=== PATIENT | female | born 1995 | race Caucasian/White ===

== ENCOUNTER 2018-11-16 21:52 | Emergency (ER) | payer OTHER ==
--- NOTE | 2018-11-16 21:57 | PDOC ---
Rapid Medical Evaluation Time Seen by Provider: 11/16/18 21:54 Medical Evaluation: 11/16/18 21:54 I have performed a brief in-person evaluation of this patient. The patient presents with a chief complaint of: lower abdominal cramping and vomiting Pertinent physical exam findings: LMP -"end of september" No abd tenderness. No CVAT I have ordered the following: labs, urine, ivf The patient will proceed to the ED for further evaluation. Discharge Disposition - Diagnosis Abdominal cramping - Referrals - Patient Instructions - Post Discharge Activity
[2018-11-16 21:58] VITALS: TEMP 98.2; BMI 21.7
[2018-11-16] MEDS ORDERED: SODIUM CHLORIDE 1,000 ML IV STA (22:03)
[2018-11-16 22:43] LABS: BASO % 0.2 % (0-2.0); HEMATOCRIT 42.8 % (32.4-45.2); HEMOGLOBIN 15.1 GM/dL (10.7-15.3); LYMPH % 11.1 % (8-40); MCH 31.4 pg (25.7-33.7); MCHC 35.3 g/dl (32.0-36.0); MEAN CELL VOLUME 88.9 fl (80-96); MEAN PLT VOLUME 8.5 fl (7.5-11.1); MONO % 7.7 % (3.8-10.2); PLATELET COUNT 325 K/MM3 (134-434); RBC 4.82 M/mm3 (3.60-5.2); RDW 12.6 % (11.6-15.6)
[2018-11-16] MEDS ORDERED: ONDANSETRON 4 MG/2 ML VIAL IVPUSH ONE (22:53)
[2018-11-16 23:05] LABS: ALBUMIN 4.7 g/dl (3.4-5.0); ALK PHOS 59 U/L (45-117); ANION GAP 15 MMOL/L (8-16); BLOOD UREA NITROGEN 13 mg/dL (7-18); CALCIUM 9.2 mg/dL (8.5-10.1); CHLORIDE 94 mmol/L (98-107); CO2 26 mmol/L (21-32); CREATININE 0.9 mg/dL (0.55-1.3); GLUCOSE,RANDOM 132 mg/dL (74-106); LIPASE 116 U/L (73-393); POTASSIUM 3.7 mmol/L (3.5-5.1); SGOT/AST 23 U/L (15-37); SGPT/ALT 31 U/L (13-61); SODIUM 134 mmol/L (136-145); TOT PROT 8.4 g/dl (6.4-8.2)
--- NOTE | 2018-11-16 23:17 | PDOC ---
Attending Attestation - HPI HPI: 11/16/18 23:36 The patient is a 22 year old female () with no significant past medical history who presents to the emergency department with low ab pain and nausea for 1 week. The patient reports that she has been experiencing some associated vomiting with her nausea and abdominal pain. [facility] which she was given zofran and, had a medically induced . She denies any vaginal bleed, discharge , dysuria or frequency. The patient denies any other symptoms or complaints. Documentation prepared by Opal Marc, acting as infertility medical assistant for Greg Florez MD. <Opal Marc - Last Filed: 11/16/18 23:35> - Resident Resident Name: Dinesh Frausto - ED Attending Attestation I have performed the following: I have examined & evaluated the patient, The case was reviewed & discussed with the resident, I agree w/resident's findings & plan, Exceptions are as noted - Physicial Exam PE: 11/17/18 05:24 Agree with exam as documented by resident - Medical Decision Making 11/17/18 05:26 n/v, abd px, vag bleeding in context of recent misoprostol dose for medical ab f/u labs, tvus dispo per clinical course <Greg Florez - Last Filed: 11/17/18 05:26>
[2018-11-16] MEDS ORDERED: ONDANSETRON 4 MG/2 ML VIAL ONE (23:27)
--- NOTE | 2018-11-16 23:52 | PDOC ---
History of Present Illness - General Chief Complaint: Nausea/Vomiting Stated Complaint: VOMITING Time Seen by Provider: 11/16/18 21:54 History Source: Patient Exam Limitations: No Limitations - History of Present Illness Initial Comments: 11/16/18 23:47 Patient is a 22F , LMP 9 weeks ago, history of surgical abortions here today complaining of one week of vomiting. [facility] a medical . Endorses sick contact with vomiting in her son. Endorses vomit with small amount of blood in vomit. Denies fevers, chills. Endorses lower abdominal pain. Denies vaginal discharge and vaginal bleeding. Denies dysuria. Past History - Past Medical History Allergies/Adverse Reactions: Allergies Allergy/AdvReac Type Severity Reaction Status Date / Time No Known Allergies Allergy Verified 11/16/18 21:59 COPD: No CHF: No - Suicide/Smoking/Psychosocial Hx Smoking History: Never smoked Have you smoked in the past 12 months: No Information on smoking cessation initiated: No Hx Alcohol Use: No Drug/Substance Use Hx: No Review of Systems - Review of Systems Comments:: 11/16/18 23:49 GENERAL/CONSTITUTIONAL: No fever or chills. No weakness. HEAD, EYES, EARS, NOSE AND THROAT: No change in vision. No sore throat. CARDIOVASCULAR: No chest pain or shortness of breath RESPIRATORY: No cough, wheezing, or hemoptysis. GASTROINTESTINAL: +nausea, +vomiting, +diarrhea. GENITOURINARY: No dysuria, frequency, or change in urination. MUSCULOSKELETAL: No joint or muscle swelling or pain. No neck or back pain. SKIN: No rash NEUROLOGIC: No headache, vertigo, loss of consciousness, or change in strength/ sensation. ENDOCRINE: No increased thirst. No abnormal weight change HEMATOLOGIC/LYMPHATIC: No anemia, easy bleeding, or history of blood clots. ALLERGIC/IMMUNOLOGIC: No hives or skin allergy. *Physical Exam - Vital Signs Last Vital Signs Temp Pulse Resp BP Pulse Ox 98.2 F 102 H 16 118/84 100 11/16/18 21:55 11/16/18 21:55 11/16/18 21:55 11/16/18 21:55 11/16/18 21:55 - Physical Exam Comments: 11/16/18 23:50 GENERAL: Awake, alert, and fully oriented, tired appearing HEAD: No signs of trauma, normocephalic, atraumatic EYES: PERRLA, EOMI, sclera anicteric, conjunctiva clear ENT: Auricles normal inspection, hearing grossly normal, nares patent, oropharynx clear without exudates. Dry mucosa NECK: Normal ROM, supple, no lymphadenopathy, JVD, or masses LUNGS: No distress, speaks full sentences, clear to auscultation bilaterally HEART: Regular rate and rhythm, normal S1 and S2, no murmurs, rubs or gallops, peripheral pulses normal and equal bilaterally. ABDOMEN: Soft, +suprapubic tenderess, normoactive bowel sounds. No guarding, no rebound. No masses EXTREMITIES: Normal inspection, Normal range of motion, no edema. No clubbing or cyanosis. NEUROLOGICAL: Cranial nerves II through XII grossly intact. Normal speech, normal gait, no focal sensorimotor deficits SKIN: Warm, Dry, normal turgor, no rashes or lesions noted. : Blood in vaginal vault, no CMT, normal appearing external genitalia Moderate Sedation - Procedure Monitoring Vital Signs: Procedure Monitoring Vital Signs Temperature 98.2 F 11/16/18 21:55 Pulse Rate 102 H 11/16/18 21:55 Respiratory Rate 16 11/16/18 21:55 Blood Pressure 118/84 11/16/18 21:55 O2 Sat by Pulse Oximetry (%) 100 11/16/18 21:55 ED Treatment Course - LABORATORY CBC & Chemistry Diagram: 11/16/18 22:40 11/16/18 22:40 - ADDITIONAL ORDERS Additional order review: Laboratory Results 11/16/18 22:40 Sodium 134 L Potassium 3.7 Chloride 94 L Carbon Dioxide 26 Anion Gap 15 BUN 13 Creatinine 0.9 Creat Clearance w eGFR > 60 Random Glucose 132 H Calcium 9.2 Total Bilirubin 1.0 AST 23 ALT 31 Alkaline Phosphatase 59 Total Protein 8.4 H Albumin 4.7 Lipase 116 11/16/18 22:40 RBC 4.82 MCV 88.9 MCHC 35.3 RDW 12.6 MPV 8.5 Neutrophils % 81.0 Lymphocytes % 11.1 Monocytes % 7.7 Eosinophils % 0.0 Basophils % 0.2 - RADIOLOGY Radiology Studies Ordered: Category Date Time Status TRANSVAGINAL US PREG [US] Stat Ultrasound 11/16/18 22:58 Ordered - Medications Given in the ED: ED Medications Discontinued Medications Generic Name Dose Route Start Last Admin Trade Name Sky PRN Reason Stop Dose Admin Sodium Chloride 1,000 mls @ 1,000 mls/hr 11/16/18 22:03 11/16/18 22:39 Normal Saline - IV 11/16/18 23:02 1,000 mls/hr ASDIR STA Administration Ondansetron HCl 4 mg 11/16/18 22:53 11/16/18 23:41 Zofran Injection IVPUSH 11/16/18 22:54 4 mg ONCE ONE Administration Medical Decision Making - Medical Decision Making 11/16/18 23:50 Patient is 22F here today with vomiting and lower abdominal pain. Vitals notable for tachycardia, patient appears dry. exam shows blood, otherwise normal. DDx includes, but is not limited to: gastritis, hyperemesis gravidarum, uti. Will evaluate with basic labs, ua, preg, tvus. Will treat with fluids and zofran. 11/17/18 01:25 Reassessed, still vomiting, bhcg positive. CBC, CMP normal. US pending. Still vomiting. Given 2nd liter, 4mg more of zofran. 11/17/18 02:10 US shows cyst consistent with corpeus luteum, possible missed ab given stripe but no IUP. Given clinical history, likely in progress. Will continue to hydrate and observe. 11/17/18 05:24 Patient tolerating PO, pending UA. 11/17/18 05:57 UA shows large amount of blood, nitrite and le negative. Will discharge home. *DC/Admit/Observation/Transfer Diagnosis at time of Disposition: Abdominal cramping, - Discharge Dispostion Disposition: HOME Condition at time of disposition: Good Decision to Admit order: No - Referrals Referrals: ON STAFF,NOT [Primary Care Provider] - - Patient Instructions Printed Discharge Instructions: DI for Vomiting -- Adult Additional Instructions: [facility] Please return if you have any new, worsening or concerning symptoms, especially increasing pain, repeated vomiting, and fever. - Post Discharge Activity Forms/Work/School Notes: Back to Work
[2018-11-17] MEDS ORDERED: ONDANSETRON 4 MG/2 ML VIAL IVPUSH ONE (01:13)
[2018-11-17] MEDS ORDERED: SODIUM CHLORIDE 1,000 ML IV STA (01:13)
[2018-11-17] MEDS ORDERED: ONDANSETRON 4 MG/2 ML VIAL ONE (01:15)
[2018-11-17] MEDS ORDERED: IBUPROFEN 600 MG TABLET (FP) PO ONE ×2 (02:16→02:21)
[2018-11-17 05:35] LABS: URINE APPEARANCE TURBID; URINE BILIRUBIN NEGATIVE (<2.0 mg/dL); URINE COLOR RED; URINE GLUCOSE (UA) 1+ (NEGATIVE); URINE KETONE 2+ (NEGATIVE); URINE LEUK ESTERASE NEGATIVE (NEGATIVE); URINE NITRITE NEGATIVE (NEGATIVE); URINE PROTEIN 3+ (NEGATIVE); URINE UROBILINOGEN NEGATIVE mg/dL (0.2-1.0)
[2018-11-17 05:38] LABS: HCG,QUALITATIVE URINE Positive
[2018-11-17 06:48] VITALS: BP 122/78; PULSE 87
== END 2018-11-17 06:58 | disposition home or self-care (01) ==
LOC: JER 21:52
DX: O26.891 Other specified pregnancy related conditions, first trimester (principal); O03.9 Complete or unspecified spontaneous abortion without complication; O34.81 Maternal care for other abnormalities of pelvic organs, first trimester; N83.291 Other ovarian cyst, right side; Z3A.09 9 weeks gestation of pregnancy
CPT/HCPCS: 36415; 76817-TC; 80053; 81003; 81015; 83690; 84702; 84703; 85025; 86850; 86900; 86901; 87086; 87186; 99283-25; J7030